=== PATIENT | female | born 1980 ===

== ENCOUNTER 2021-08-27 19:19 | Emergency (ER) | payer SELFPAY ==
[~2021-08-27] VITALS: Ht 165.1 cm; Wt 63.5 kg
--- NOTE | 2021-08-27 19:37 | NUR ---
NO BEDS AVAILABLE IN THE ER. PLACED IN HALLWAY.
--- NOTE | 2021-08-27 19:53 | NUR ---
PATIENT STATES SHE IS FEELING BETTER AND WOULD RATHER GO HOME WITH . PATIENT ELOPED AND BEFORE SIGNING AMA.
== END 2021-08-27 20:00 | disposition left against medical advice (07) ==
LOC: ER 19:21
DX: Z53.21 Procedure and treatment not carried out due to patient leaving prior to being seen by health care provider (principal)